=== PATIENT | female | born 1950 | race Caucasian/White ===

== ENCOUNTER 2022-11-29 18:59 | Emergency (ER) | payer MEDICARE ==
[~2022-11-29] VITALS: Ht 170.2 cm; Wt 74.3 kg
[2022-11-29] MEDS ORDERED: NORCO, ANEXSIA 5/325MG TABLET (HYDROcodone/ACETAMINOPHEN) PO ONE (20:10)
[2022-11-29] MEDS ORDERED: HYDR-3713 PO (20:23)
[2022-11-29 20:28] VITALS: BP 144/96
== END 2022-11-29 20:31 | disposition home or self-care (01) ==
LOC: M ED 18:59
DX: S62.307A Unspecified fracture of fifth metacarpal bone, left hand, initial encounter for closed fracture (principal); W23.0XXA Caught, crushed, jammed, or pinched between moving objects, initial encounter; Y92.009 Unspecified place in unspecified non-institutional (private) residence as the place of occurrence of the external cause; Y93.89 Activity, other specified; Y99.8 Other external cause status; I10 Essential (primary) hypertension; Z88.0 Allergy status to penicillin

== ENCOUNTER → 2023-01-09 | Outpatient (CLI) | payer MEDICARE ==
[~2023-01-09] MED LIST: HYDR-3713 PO
== END ==
LOC: M SOG 13:15
PROVIDERS: ATTEND Orthopaedic Surgery
DX: S62.307A Unspecified fracture of fifth metacarpal bone, left hand, initial encounter for closed fracture (principal); X58.XXXA Exposure to other specified factors, initial encounter; Y92.9 Unspecified place or not applicable; Y93.9 Activity, unspecified; Y99.9 Unspecified external cause status; M19.042 Primary osteoarthritis, left hand

== ENCOUNTER 2024-04-30 14:30 | Emergency (ER) | payer MEDICARE ==
[~2024-04-30] VITALS: Ht 170.2 cm; Wt 59.1 kg
[2024-04-30 15:25] LABS: BASO % 0.1 % (0.0-1.0); HEMATOCRIT 41.5 % (36.0-47.0); HEMOGLOBIN 14.4 g/dl (12.0-15.5); LYMPH # 0.6 10^3/uL (1.5-5.0); LYMPH % 6.7 % (24.0-44.0); MEAN CORPUSCULAR HEMOGLOBIN 31.9 pg (27.0-33.0); MEAN CORPUSCULAR HGB CONC 34.7 g/dl (32.0-36.5); MONO # 0.5 10^3/uL (0.0-0.8); MONO % 5.2 % (2.0-8.0); NEUTROPHILS # 8.3 10^3/uL (1.5-8.5); NEUTROPHILS % 87.8 % (36.0-66.0); PLATELET COUNT, AUTOMATED 330 10^3/uL (150-450); RED BLOOD COUNT 4.51 10^6/uL (4.00-5.40); WHITE BLOOD COUNT 9.5 10^3/uL (4.0-10.0)
[2024-04-30 15:34] LABS: LIPASE 33 U/L (12-53)
[2024-04-30 15:40] LABS: ALKALINE PHOSPHATASE 79 U/L (46-116); ALT/SGPT 22 U/L (7.0-40); AST/SGOT 17 U/L (<34); BILIRUBIN,DIRECT 0.1 MG/DL (<0.4); BILIRUBIN,TOTAL 0.5 MG/DL (0.3-1.2); BLOOD UREA NITROGEN 11 MG/DL (9-23); CALCIUM LEVEL 10.2 MG/DL (8.3-10.6); CARBON DIOXIDE LEVEL 30 MMOL/L (20-31); CHLORIDE LEVEL 105 MMOL/L (98-107); CREATININE FOR GFR 0.65 MG/DL (0.55-1.30); GLOMERULAR FILTRATION RATE > 60.0 (>39); GLUCOSE, FASTING 184 MG/DL (74-106); POTASSIUM SERUM 3.3 MMOL/L (3.5-5.1); SODIUM LEVEL 141 MMOL/L (136-145); TOTAL PROTEIN 7.9 G/DL (5.7-8.2)
[2024-04-30] MEDS: LORazepam 2 MG/ML 1ML VIAL IV STA (16:22)
[2024-04-30] MEDS: METOCLOPRAMIDE INJ 10MG/2ML VIAL IV ONE (16:22)
[2024-04-30] MEDS ORDERED: ONDA-282 PO (18:22)
[2024-04-30 19:07] VITALS: BP 165/81; TEMP 99.9; O2SAT 97
== END 2024-04-30 19:57 | disposition home or self-care (01) ==
LOC: M ED 14:30
DX: R11.2 Nausea with vomiting, unspecified (principal); F41.9 Anxiety disorder, unspecified; I10 Essential (primary) hypertension; Z88.0 Allergy status to penicillin
CPT/HCPCS: 80048; 80076; 82140; 83690; 85025; 96374; 96375; 99285; J2060; J2765

== ENCOUNTER 2024-05-16 17:03 | Emergency (ER) | payer MEDICARE ==
[~2024-05-16] VITALS: Ht 170.2 cm; Wt 59.1 kg
[~2024-05-16 17:03] MED LIST changes: +ONDA-282 PO
[2024-05-16 19:48] LABS: BASO % 0.3 % (0.0-1.0); HEMATOCRIT 38.4 % (36.0-47.0); HEMOGLOBIN 13.3 g/dl (12.0-15.5); LYMPH # 1.4 10^3/uL (1.5-5.0); LYMPH % 13.2 % (24.0-44.0); MEAN CORPUSCULAR HEMOGLOBIN 31.6 pg (27.0-33.0); MEAN CORPUSCULAR HGB CONC 34.6 g/dl (32.0-36.5); MEAN CORPUSCULAR VOLUME 91.2 fl (80.0-96.0); MONO # 0.8 10^3/uL (0.0-0.8); MONO % 7.5 % (2.0-8.0); NEUTROPHILS # 8.3 10^3/uL (1.5-8.5); NEUTROPHILS % 78.6 % (36.0-66.0); PLATELET COUNT, AUTOMATED 372 10^3/uL (150-450); RED BLOOD COUNT 4.21 10^6/uL (4.00-5.40); WHITE BLOOD COUNT 10.6 10^3/uL (4.0-10.0)
[2024-05-16 20:07] LABS: LIPASE 27 U/L (12-53)
[2024-05-16 20:08] LABS: CK-MB VALUE MASS < 1.0 NG/ML (<3.6)
[2024-05-16 20:10] LABS: ALBUMIN 3.2 G/DL (3.2-5.2); ALKALINE PHOSPHATASE 63 U/L (35-104); ALT/SGPT 18 U/L (7.0-40); AST/SGOT 18 U/L (<34); BILIRUBIN,DIRECT 0.1 MG/DL (<0.4); BILIRUBIN,TOTAL 0.5 MG/DL (0.3-1.2); BLOOD UREA NITROGEN 12 MG/DL (9-23); CALCIUM LEVEL 9.4 MG/DL (8.3-10.6); CARBON DIOXIDE LEVEL 30 MMOL/L (20-31); CHLORIDE LEVEL 100 MMOL/L (98-107); CREATININE FOR GFR 0.89 MG/DL (0.55-1.30); GLOMERULAR FILTRATION RATE > 60.0 (>39); GLUCOSE, FASTING 138 MG/DL (74-106); POTASSIUM SERUM 3.7 MMOL/L (3.5-5.1); SODIUM LEVEL 136 MMOL/L (136-145); TOTAL PROTEIN 6.6 G/DL (5.7-8.2)
[2024-05-16 20:16] LABS: CPK CREATINE PHOSPHOKINASE 65 U/L (34-145); MB/CK RELATIVE INDEX 1.53 (< OR =4)
[2024-05-16] MEDS ORDERED: ISOVUE-370 76% 100ML VIAL As Ordered ONE (20:32)
[2024-05-16] MEDS: METOCLOPRAMIDE INJ 10MG/2ML VIAL IV ONE (20:45)
[2024-05-16 21:10] LABS: CK-MB VALUE MASS < 1.0 NG/ML (<3.6)
[2024-05-16 21:16] LABS: CPK CREATINE PHOSPHOKINASE 74 U/L (34-145); MB/CK RELATIVE INDEX 1.35 (< OR =4)
[2024-05-17 00:02] LABS: CK-MB VALUE MASS < 1.0 NG/ML (<3.6)
[2024-05-17 00:03] LABS: CPK CREATINE PHOSPHOKINASE 57 U/L (34-145); MB/CK RELATIVE INDEX 1.75 (< OR =4)
[2024-05-17] MEDS ORDERED: REGL10TA6 PO (00:17)
[2024-05-17 00:33] VITALS: BP 105/62; TEMP 97.8; O2SAT 96
== END 2024-05-17 00:49 | disposition home or self-care (01) ==
LOC: M ED 17:03 → EDBD 17:03 → M ED 05-17 00:49
DX: R10.9 Unspecified abdominal pain (principal); R11.2 Nausea with vomiting, unspecified; R92.8 Other abnormal and inconclusive findings on diagnostic imaging of breast; N85.2 Hypertrophy of uterus; E11.9 Type 2 diabetes mellitus without complications; I10 Essential (primary) hypertension; Z88.0 Allergy status to penicillin
CPT/HCPCS: 74177; 80048; 80076; 82550; 82553; 83690; 84484; 85025; 93005; 93041; 96374; 99285; J2765; Q9967